=== PATIENT | male | born 1970 | race Caucasian/White ===

== ENCOUNTER → 2021-01-10 | Outpatient (CLI) | payer BC, OTHER ==
[~2021-01-10] MED LIST: ASACOL HD800 MG PO; FISH OIL 1,2001 EACH PO; FLOMAX0.4 MG PO; GLUCOPHAGE XR500 MG PO; LISINOPRIL40 MG PO; MORPHINE SULFAT15 M1 PO; MULTIVITAMINS1 EAC1 PO; NORVASC5 MG PO; PANTOPRAZOLE SO40 MG PO; QUESTRAN LIGHT 44 GM PO; TESSALON PERLE100 MG PO; TORADOL 10 MG T10 MG PO; ZOFRAN ODT 4 MG4 MG PO
== END ==
LOC: US 07:42
DX: K76.0 Fatty (change of) liver, not elsewhere classified (principal)
CPT/HCPCS: 76700

== ENCOUNTER → 2021-05-16 | Outpatient (CLI) | payer BC ==
[2021-05-17 07:10] LABS: ALPHA-1-ANTITRYPSIN, SERUM 117 mg/dL (101-187); HBSAG SCREEN Negative (Negative); HEP A AB, IGM Negative (Negative); HEP B CORE AB, IGM Negative (Negative); HEP C VIRUS AB <0.1 (0.0-0.9)
[2021-05-17 15:13] LABS: MITOCHONDRIAL (M2) ANTIBODY <20.0 Units (0.0-20.0)
== END ==
LOC: LAB 08:11
PROVIDERS: Internal Medicine Gastroenterology
DX: R94.5 Abnormal results of liver function studies (principal)
CPT/HCPCS: 36415; 80074; 82103; 82728; 83540; 83550; 86038

== ENCOUNTER → 2021-08-06 | Outpatient (CLI) | payer BC ==
[2021-08-07 10:13] LABS: CALCIUM, SERUM 9.1 mg/dL (8.7-10.2); CREATININE, SERUM 1.17 mg/dL (0.76-1.27); POTASSIUM, SERUM 3.9 mmol/L (3.5-5.2)
== END ==
LOC: LAB 09:22
PROVIDERS: Nurse Practitioner Family
DX: R94.5 Abnormal results of liver function studies (principal)
CPT/HCPCS: 36415; 80048; 82784; 83516; 86376

== ENCOUNTER → 2021-11-13 | Outpatient (CLI) | payer BC | LOC: KOH-I 15:45 | DX: R05.9 Cough, unspecified (principal) | CPT/HCPCS: 71045 ==

== ENCOUNTER → 2022-04-01 | Outpatient (CLI) | payer BC | LOC: LAB 17:00 | DX: R94.5 Abnormal results of liver function studies (principal) | CPT/HCPCS: 36415; 80076 ==